=== PATIENT | male | born 1975 | race African-American/Black ===

== ENCOUNTER 2016-12-15 04:07 | Emergency (ER) | payer OTHER ==
[~2016-12-15] VITALS: Ht 180.3 cm; Wt 78.7 kg
[2016-12-15 04:12] VITALS: BP 122/85; PULSE 86; RESP 14; TEMP 97.8; O2SAT 98
--- NOTE | 2016-12-15 04:22 | PD ---
HPI Chief Complaint: Musculoskeletal Complaint Time Seen by Provider: 04:18 Travel History International Travel<30 days: No Contact w/Intl Traveler<30days: No Traveled to known affect area: No History of Present Illness HPI The patient is a 41-year-old male that stepped his left fifth toe approximately 3:30 AM tonight on a piece of furniture in his hotel room. He denies any other injury. [facility] Social History Tobacco Use: No Allergies-Medications (Allergen,Severity, Reaction): Coded Allergies: No Known Allergies (Unverified , 12/15/16) Review of Systems Except as stated in HPI: all other systems reviewed are Neg Physical Exam Narrative GENERAL: Well-nourished, well-developed patient in slight apparent distress with his left fifth toe discomfort. His vital signs are normal. SKIN: Focused skin assessment warm/dry. HEAD: Normocephalic. EYES: No scleral icterus. No injection or drainage. NECK: Supple, trachea midline. No JVD or lymphadenopathy. CARDIOVASCULAR: Regular rate and rhythm without murmurs, gallops, or rubs. RESPIRATORY: Breath sounds equal bilaterally. No accessory muscle use. GASTROINTESTINAL: Abdomen soft, non-tender, nondistended. MUSCULOSKELETAL: No cyanosis, or edema. There is swelling with no obvious deformity on the left fifth toe. He has good capillary refill on this toe distally. There is no break in the skin. BACK: Nontender without obvious deformity. No CVA tenderness. Data Data Last Documented VS Vital Signs Date Time Temp Pulse Resp B/P Pulse Ox O2 Delivery O2 Flow Rate FiO2 12/15/16 04:12 97.8 86 14 122/85 98 Orders Toe (Min 2vws) (12/15/16 ) Splint Or Brace Apply/Monitor (12/15/16 05:19) [facility] Medical Decision Making Medical Screen Exam Complete: Yes Emergency Medical Condition: Yes Medical Record Reviewed: Yes Interpretation(s) No fracture is seen on the toe x-rays. Differential Diagnosis Fractured toe, contusion toe, dislocated toe Narrative Course The patient has a contusion of the left fifth toe. Diagnosis Primary Impression: Contusion of fifth toe, left Additional Instructions: Trace tape the fifth of the fourth toe interposing cotton [place] between the 2 toes to prevent maceration. It is a good idea to change this daily. Follow-up with a forester silviculture if you still have problems. Med/Other Pt SpecificInfo: No Change to Meds Disposition: 01 DISCHARGE HOME Condition: Stable Garry Rhdoes MD Dec 15, 2016 04:22
--- NOTE | 2016-12-15 06:22 | RADRPT ---
EXAM DATE/TIME: 12/15/2016 04:54 [place] COMPARISON: No previous studies available for comparison. INDICATIONS : Left foot, fifth digit pain. MEDICAL HISTORY : None. SURGICAL HISTORY : None. ENCOUNTER: Initial ACUITY: 1 day PAIN SCORE: 7/10 LOCATION: Left foot FINDINGS: Examination of the fifth digit of the left foot demonstrates soft tissue swelling fifth digit with mi nimal emphysema. No radiopaque foreign bodies. No periosteal reaction. No radiopaque foreign bodies are seen. The soft tissues are intact. CONCLUSION: Soft tissue swelling. No acute bony abnormality. Dustin Cottrell MD on December 15, 2016 at 6:20 Board Certified Radiologist. This report was verified electronically.
== END 2016-12-15 05:34 | disposition home or self-care (01) ==
LOC: PHED 04:07
DX: S90.122A Contusion of left lesser toe(s) without damage to nail, initial encounter (principal); W22.03XA Walked into furniture, initial encounter; Y93.9 Activity, unspecified; Y92.59 Other trade areas as the place of occurrence of the external cause; Y99.9 Unspecified external cause status
CPT/HCPCS: 73660; 99283